=== PATIENT | male | born 1975 ===

== ENCOUNTER 2021-01-09 19:48 | Emergency (ER) | payer OTHER ==
[~2021-01-09] VITALS: Ht 167.6 cm; Wt 61.7 kg
--- NOTE | 2021-01-09 20:00 | NUR ---
45 year old homeless male presents to the ED for Left Sided abdominal pain. Patient is a 06/28. According to the patient he drinks a pint of Vodka/day. He also reports Heroin and Methamphetamine use. All vitals WNLs. Patient resting in bed comfortably. Addendum: 01/09/21 at 2215 by [email or web address] Pain* is 06/28
[2021-01-09 21:01] LABS: BASOPHILS % (AUTO) 0.6 % (0.0-2.0); EOSINOPHILS # (AUTO) 0.1 K/uL (0.0-0.7); EOSINOPHILS % (AUTO) 1.7 % (0.0-7.0); HEMATOCRIT 34.9 % (36.7-47.1); HEMOGLOBIN 11.6 g/dL (12.5-16.3); LYMPHOCYTES # (AUTO) 2.5 K/uL (20.0-40.0); LYMPHOCYTES % (AUTO) 30.3 % (20.5-51.5); MEAN CORPUSCULAR HEMOGLOBIN 29.5 uug (23.8-33.4); MEAN CORPUSCULAR HGB CONC 33 g/dL (32.5-36.3); MEAN CORPUSCULAR VOLUME 88.9 fL (73.0-96.2); MONOCYTES # (AUTO) 0.9 K/uL (2.0-10.0); MONOCYTES % (AUTO) 10.7 % (0.0-11.0); NEUTROPHILS # (AUTO) 4.7 K/uL (1.8-8.9); NEUTROPHILS % (AUTO) 56.7 % (38.5-71.5); PLATELET COUNT (AUTO) 269 K/uL (152-348); RED BLOOD CELL COUNT(AUTO) 3.92 MIL/uL (4.06-5.63); WHITE BLOOD COUNT (AUTO) 8.3 K/uL (3.6-10.2)
[2021-01-09 21:03] LABS: *BILIRUBIN,URIN NEGATIVE (NEGATIVE); *BLOOD, URINE NEGATIVE (NEGATIVE); *CLARITY,URINE CLEAR (CLEAR); *COLOR,URINE LIGHT YELLOW (YELLOW); *KETONES,URINE NEGATIVE (NEGATIVE); *UROBILINOGEN,URINE 0.2 E.U./dl (NORMAL); LEUKOCYTE ESTERASE ,URINE NEGATIVE (NEGATIVE); NITRITE, URINE NEGATIVE (NEGATIVE); PH,URINE 5.5 (5.0-8.0); UGLUCOSE NEGATIVE (NEGATIVE)
[2021-01-09 21:03] LABS: POTASSIUM 3.5 mmol/L (3.5-5.1)
[2021-01-09 21:10] LABS: BILIRUBIN,DIRECT 0.2 mg/dL (0.0-0.2); BILIRUBIN,TOTAL 0.7 mg/dL (0.2-1.0); TOTAL PROTEIN, SERUM 7.9 g/dL (6.4-8.2)
[2021-01-09] MEDS ORDERED: HYDR-3980 PO (22:16)
--- NOTE | 2021-01-09 22:26 | NUR ---
Patient discharged to home in stable condition. Written and verbal after care instructions given. Patient verbalizes understanding of instructions. Stressed follow up or return to ER for worsening s/s. Belongings with patient. Homeless packet given. Rx given.
[2021-01-09 22:27] VITALS: BP 117/66
== END 2021-01-09 22:28 | disposition home or self-care (01) ==
LOC: ER 19:48
DX: G89.29 Other chronic pain (principal); R10.12 Left upper quadrant pain; Z59.0 Homelessness; F43.10 Post-traumatic stress disorder, unspecified; F10.120 Alcohol abuse with intoxication, uncomplicated; F15.10 Other stimulant abuse, uncomplicated; F11.10 Opioid abuse, uncomplicated; F41.8 Other specified anxiety disorders
CPT/HCPCS: 36415; 74021; 83690; 85025; A4663; J7030